=== PATIENT | female | born 1985 | race Caucasian/White ===

== ENCOUNTER 2017-12-02 11:03 | Outpatient (CLI) | payer MEDICAID ==
[2017-12-02 12:51] LABS: ADD UMIC YES; UR ASCORBIC ACID NEGATIVE (NEGATIVE); UR BACTERIA FEW /HPF (NONE SEEN); UR BILIRUBIN (Dip) NEGATIVE (NEGATIVE); UR BLOOD (Dip) NEGATIVE (NEGATIVE); UR CLARITY CLEAR (CLEAR); UR COLOR STRAW (YELLOW); UR GLUCOSE (Dip) NEGATIVE (NEGATIVE); UR KETONES (Dip) NEGATIVE (NEGATIVE); UR LEUKOCYTE ESTERASE (Dip) TRACE Leu/ul (NEGATIVE); UR NITRITE (Dip) NEGATIVE (NEGATIVE); UR RBC 0 /HPF (0-5); UR SPECIFIC GRAVITY (Dip) 1.002 (1.003-1.030); UR TOTAL PROTEIN (Dip) NEGATIVE (NEGATIVE); UR UROBILINOGEN (Dip) NEGATIVE (NEGATIVE); UR WBC 0 /HPF (0-5)
== END 2017-12-02 14:00 | disposition home or self-care (01) ==
LOC: OBT 11:03 → L-D 11:03 → OBT 14:00
DX: O36.8130 Decreased fetal movements, third trimester, not applicable or unspecified (principal); Z3A.32 32 weeks gestation of pregnancy
CPT/HCPCS: 76818; 81001

== ENCOUNTER 2017-12-13 10:27 | Outpatient (CLI) | payer MEDICAID | END 2017-12-13 16:10 | disposition home or self-care (01) | LOC: OBT 10:27 → L-D 10:27 → OBT 16:10 | DX: O76 Abnormality in fetal heart rate and rhythm complicating labor and delivery (principal); O99.283 Endocrine, nutritional and metabolic diseases complicating pregnancy, third trimester; E03.9 Hypothyroidism, unspecified; Z3A.33 33 weeks gestation of pregnancy | CPT/HCPCS: Z7500 ==

== ENCOUNTER 2017-12-31 16:47 | Outpatient (CLI) | payer MEDICAID ==
[2017-12-31 18:04] LABS: ADD UMIC NO; UR ASCORBIC ACID NEGATIVE (NEGATIVE); UR BILIRUBIN (Dip) NEGATIVE (NEGATIVE); UR BLOOD (Dip) NEGATIVE (NEGATIVE); UR CLARITY CLEAR (CLEAR); UR COLOR STRAW (YELLOW); UR GLUCOSE (Dip) NEGATIVE (NEGATIVE); UR KETONES (Dip) NEGATIVE (NEGATIVE); UR LEUKOCYTE ESTERASE (Dip) NEGATIVE Leu/ul (NEGATIVE); UR NITRITE (Dip) NEGATIVE (NEGATIVE); UR SPECIFIC GRAVITY (Dip) 1.003 (1.003-1.030); UR TOTAL PROTEIN (Dip) NEGATIVE (NEGATIVE); UR UROBILINOGEN (Dip) NEGATIVE (NEGATIVE)
== END 2017-12-31 20:57 | disposition home or self-care (01) ==
LOC: OBT 16:47 → L-D 17:22 → OBT 20:57
DX: O26.893 Other specified pregnancy related conditions, third trimester (principal); R10.2 Pelvic and perineal pain; Z3A.35 35 weeks gestation of pregnancy
CPT/HCPCS: 76817; 76818; 81003; 87086

== ENCOUNTER 2018-01-28 19:58 | Inpatient (IN) | payer MEDICAID ==
[2018-01-28] MEDS ORDERED: CARBOPROST 250 MCG INJ IM (21:00)
[2018-01-28] MEDS ORDERED: METHYLERGONOVINE 0.2 MG INJ IM (21:00)
[2018-01-28] MEDS ORDERED: IBUPROFEN 600 MG TAB PO (21:00)
[2018-01-28] MEDS ORDERED: OXYTOCIN 30 UNITS/LR 500 ML IV (21:00)
[2018-01-28] MEDS ORDERED: BUTORPHANOL 2 MG INJ IV ×2 (21:00)
[2018-01-28] MEDS ORDERED: MISOPROSTOL 200 MCG TAB PR (21:00)
[2018-01-28 21:48] LABS: ADD MAN DIFF? NO
[2018-01-28 21:50] LABS: BASOPHILS % 0.2 % (0.0-2.0); EOSINOPHILS # 0.1 10^3/ul (0.0-0.5); EOSINOPHILS % 0.9 % (0.0-7.0); HEMATOCRIT 30.9 % (37.0-47.0); LYMPHOCYTES # 2.4 10^3/ul (0.8-2.9); LYMPHOCYTES % 26.3 % (15.0-51.0); MEAN CORPUSCULAR HGB CONC 32.4 g/dl (32.0-37.0); MEAN CORPUSCULAR VOLUME 74.3 fl (82.0-101.0); MEAN PLATELET VOLUME 10.5 fl (7.4-10.4); MONOCYTE # 0.7 10^3/ul (0.3-0.9); NEUTROPHILS % 65.2 % (39.0-77.0); PLATELET COUNT 240 10^3/UL (140-415); RED BLOOD COUNT 4.16 10^6/ul (4.20-5.40); RED CELL DISTRIBUTION WIDTH 16.6 % (11.5-14.5)
[2018-01-28 21:50] LABS: WHITE BLOOD COUNT 9.2 10^3/ul (4.8-10.8)
[2018-01-28 22:09] LABS: INR 0.97
[2018-01-28 22:10] LABS: PARTIAL THROMBOPLASTIN TIME 33.3 Sec (25.0-35.0)
[2018-01-28 22:44] LABS: HEPATITIS B SURFACE ANTIGEN NEGATIVE (NEGATIVE)
[2018-01-28] MEDS: LACTATED RINGER'S 1,000 ML IV (23:02)
[2018-01-28] MEDS: DINOPROSTONE 10 MG VAG SUPP VAG (23:02)
[2018-01-29] MEDS: LACTATED RINGER'S 1,000 ML IV ×4 (05:33→17:33)
[2018-01-29] MEDS ORDERED: DIPHENHYDRAMINE 50 MG INJ IV (09:30)
[2018-01-29] MEDS ORDERED: NALOXONE (0.4 MG/ML) INJ IV (09:30)
[2018-01-29] MEDS ORDERED: ONDANSETRON 4 MG INJ IV (09:30)
[2018-01-29] MEDS: ACETAMINOPHEN 325 MG TAB PO (11:38)
[2018-01-29] MEDS: OXYTOCIN 30 UNITS/LR 500 ML IV (11:44)
[2018-01-29 15:01] LABS: RAPID PLASMA REAGIN NONREACTIVE (NR)
[2018-01-29] MEDS: FENTAnyl 2MCG/ML-ROPIV 0.2% 100 ML BAG EPI (19:58)
[2018-01-30] MEDS: LACTATED RINGER'S 1,000 ML IV (00:59)
[2018-01-30] MEDS ORDERED: IBUPROFEN 600 MG TAB PO (03:30)
[2018-01-30] MEDS: MINERAL OIL LIGHT 10 ML VIAL TOP (03:40)
[2018-01-30] MEDS ORDERED: OXYTOCIN 30 UNITS/LR 500 ML IV (04:30)
[2018-01-30] MEDS ORDERED: MISOPROSTOL 200 MCG TAB PR (04:30)
[2018-01-30] MEDS ORDERED: CARBOPROST 250 MCG INJ IM (04:30)
[2018-01-30] MEDS ORDERED: METHYLERGONOVINE 0.2 MG INJ IM (04:30)
[2018-01-30] MEDS ORDERED: OXYCODONE/ASPIRIN (4.88/325) TAB PO (04:30)
[2018-01-30] MEDS: OXYTOCIN 30 UNITS/LR 500 ML IV ×3 (04:43→11:15)
[2018-01-30] MEDS: LACTATED RINGER'S 1,000 ML IV* ×3 (05:28→20:10)
[2018-01-30] MEDS: IBUPROFEN 600 MG TAB PO ×3 (05:52→18:12)
[2018-01-30] MEDS: LANOLIN 7 GM TUBE TOP (08:33)
[2018-01-30] MEDS: LEVOTHYROXINE 25 MCG TAB PO (08:34)
[2018-01-30] MEDS: LEVOTHYROXINE 100 MCG TAB PO (08:34)
[2018-01-31] MEDS: IBUPROFEN 600 MG TAB PO ×4 (00:36→17:43)
[2018-01-31] MEDS: LACTATED RINGER'S 1,000 ML IV* ×4 (04:00→20:10)
[2018-01-31] MEDS: LEVOTHYROXINE 100 MCG TAB PO (06:21)
[2018-01-31] MEDS: LEVOTHYROXINE 25 MCG TAB PO (06:21)
[2018-01-31 10:50] LABS: ADD MAN DIFF? NO
[2018-01-31 10:56] LABS: BASOPHIL # 0.1 10^3/ul (0.0-0.1); BASOPHILS % 0.5 % (0.0-2.0); EOSINOPHILS # 0.2 10^3/ul (0.0-0.5); EOSINOPHILS % 1.7 % (0.0-7.0); HEMATOCRIT 32.2 % (37.0-47.0); LYMPHOCYTES # 2.1 10^3/ul (0.8-2.9); LYMPHOCYTES % 20.9 % (15.0-51.0); MEAN CORPUSCULAR HEMOGLOBIN 23.4 pg (29.0-33.0); MEAN CORPUSCULAR HGB CONC 31.1 g/dl (32.0-37.0); MEAN CORPUSCULAR VOLUME 75.2 fl (82.0-101.0); MONOCYTE # 0.4 10^3/ul (0.3-0.9); MONOCYTES % 4.3 % (0.0-11.0); NEUTROPHIL # 7.2 10^3/ul (1.6-7.5); NEUTROPHILS % 72.1 % (39.0-77.0); PLATELET COUNT 249 10^3/UL (140-415); RED BLOOD COUNT 4.28 10^6/ul (4.20-5.40); RED CELL DISTRIBUTION WIDTH 17.2 % (11.5-14.5)
[2018-01-31] MEDS: BENZOCAINE 20% 56 ML SPRAY TOP (17:43)
[2018-01-31] MEDS: WITCH HAZEL/GLYCERIN PAD PR (17:43)
[2018-02-01] MEDS: IBUPROFEN 600 MG TAB PO ×3 (00:19→11:29)
[2018-02-01] MEDS: LEVOTHYROXINE 100 MCG TAB PO (06:09)
[2018-02-01] MEDS: LEVOTHYROXINE 25 MCG TAB PO (06:09)
[2018-02-01] MEDS: DIPHTH/TET/ACEL PERTUSS (ADULT) 0.5 ML VIAL IM* (09:33)
== END 2018-02-01 14:39 | disposition home or self-care (01) | DRG 775 ==
LOC: L-D 01-29 09:23 → PP1 01-30 06:05 → L-D 19:58
PROVIDERS: Obstetrics & Gynecology
PROC: 10E0XZZ Delivery of Products of Conception, External Approach (ICD-10-PCS; principal; 2018-01-30)
PROC: 3E033VJ Introduction of Other Hormone into Peripheral Vein, Percutaneous Approach (ICD-10-PCS; 2018-01-30)
PROC: 0HQ9XZZ Repair Perineum Skin, External Approach (ICD-10-PCS; 2018-01-30)
DX: O71.4 Obstetric high vaginal laceration alone (principal); E03.9 Hypothyroidism, unspecified; O99.284 Endocrine, nutritional and metabolic diseases complicating childbirth; Z3A.39 39 weeks gestation of pregnancy; Z37.0 Single live birth
CPT/HCPCS: 62319; 76815; 85025; 85610; 85730; 86592; 86850; 86900; 86901; 87340; 99464